=== PATIENT | male | born 1975 | race Caucasian/White ===

== ENCOUNTER 2017-05-02 14:14 | Emergency (ER) | payer OTHER ==
[~2017-05-02] VITALS: Ht 172.7 cm; Wt 74.0 kg
[2017-05-02 14:25] VITALS: BP 105/59; PULSE 78; RESP 16; TEMP 98.2; O2SAT 98
[2017-05-02] MEDS ORDERED: ERYTHROMYCIN 0.5% OPTH OINT 3.5 GM TUBO RIGHT EYE ONE (15:00)
[2017-05-02] MEDS ORDERED: ERYTOIN10 RIGHT EYE (15:07)
--- NOTE | 2017-05-02 15:09 | PD ---
HPI Chief Complaint: Foreign Body Time Seen by Provider: 14:42 Travel History International Travel<30 days: No Contact w/Intl Traveler<30days: No Traveled to known affect area: No History of Present Illness HPI This is a 41-year-old male here with a small piece of metal in his right cornea. Duration 4 days. 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 He has had a constant foreign body sensation in the right eye since the injury. Denies ocular pain or visual changes. Symptom severity is moderate. No aggravating or alleviating factors. PFSH Past Medical History Medical History: Denies Significant Hx Tetanus Vaccination: > 5 Years Influenza Vaccination: No Past Surgical History Surgical History: No Previous Surgery Social History Alcohol Use: Yes (usually daily) Tobacco Use: Yes (1 ppd) Substance Use: No Allergies-Medications (Allergen,Severity, Reaction): Coded Allergies: No Known Allergies (Verified Allergy, Unknown, 05/02/17) Reported Meds & Prescriptions Reported Meds & Active Scripts Active No Active Prescriptions or Reported Medications Review of Systems Except as stated in HPI: all other systems reviewed are Neg Physical Exam Narrative GENERAL: Alert and well-appearing male SKIN: Warm and dry. HEAD: Normocephalic. Atraumatic EYES: Pupils equal, round, reactive to light. EOMs intact. No hyphema. Small metal eric superficially embedded into the cornea of the right eye located at 10:00 over the iris. No fluorescein dye uptake. Visual acuity L: 20/20. R: 20/ 30, B: 20/20 NECK: Supple, trachea midline. Data Data Last Documented VS Vital Signs Date Time Temp Pulse Resp B/P (MAP) Pulse Ox O2 Delivery O2 Flow Rate FiO2 05/02/17 14:25 98.2 78 16 105/59 (74) 98 MDM Medical Decision Making Medical Screen Exam Complete: Yes Emergency Medical Condition: Yes Differential Diagnosis Superficial Corneal foreign body, corneal abrasion, corneal ulcer Narrative Course This is a 41-year-old male here with a small metal speck embedded in the cornea of the right eye. His vision is preserved. He has minimal pain. Small metal eric was easily removed with needle tip and cotton Q-tip. Patient tolerated procedure well. Visual acuity preserved and unchanged postprocedure. Erythromycin ointment applied. He was referred to ophthalmology for follow-up. Return precautions were discussed. Patient verbalizes understanding and agrees to plan Procedures Procedure Narrative Proparacaine hydrochloride ophthalmic drops used to anesthetize the eye. Superficial metal foreign body was easily removed from the right cornea with tip of sterile needle and cotton Q-tip. Patient tolerated procedure well. Erythromycin ophthalmic ointment applied this procedure. Diagnosis Primary Impression: Corneal foreign body Qualified Codes: T15.01XA - Foreign body in cornea, right eye, initial encounter Referrals: Lisette Ching MDmanager medicaid Additional Instructions: Antibiotic ointment as directed. Make a follow-up appoint with ophthalmology. Return to the emergency department if he developed new or worsening symptoms Scripts Erythromycin Opth Oint (Erythromycin Opth Oint) 5 Mg/Gm Oint 1 APPLIC RIGHT EYE QID for Infection for 7 Days, #1 TUBE 0 Refills Prov: Josephine Martínez 05/02/17 Disposition: DISCHARGE HOME Condition: Stable Josephine Martínez May 02, 2017 15:09
== END 2017-05-02 15:49 | disposition home or self-care (01) ==
LOC: PHEFT 14:14
DX: T15.01XA Foreign body in cornea, right eye, initial encounter (principal); F17.201 Nicotine dependence, unspecified, in remission
CPT/HCPCS: 65220

== ENCOUNTER 2017-07-14 11:03 | Emergency (ER) | payer OTHER ==
[~2017-07-14] VITALS: Ht 175.3 cm; Wt 71.5 kg
[~2017-07-14 11:03] MED LIST: ERYTOIN10 RIGHT EYE
[2017-07-14 11:09] VITALS: BP 128/61; PULSE 77; RESP 16; TEMP 97.6; O2SAT 98
[2017-07-14] MEDS ORDERED: PROPARACAINE HCL 0.5% OPHT SOLN 15 ML BTL RIGHT EYE ONE (11:45)
[2017-07-14] MEDS ORDERED: ERYTOIN10 RIGHT EYE (12:34)
--- NOTE | 2017-07-14 12:41 | PD ---
HPI Chief Complaint: Foreign Body Time Seen by Provider: 12:05 Travel History International Travel<30 days: No Contact w/Intl Traveler<30days: No Traveled to known affect area: No History of Present Illness HPI 41-year-old male presents to the emergency room for evaluation of foreign body sensation to his right eye for the past 3 days. Patient states he may have gotten metal in his eye while working on a car. Since then he has had foreign body sensation with worsening pain. He tried several times to get the piece of metal out by himself but it would not work. Mild drainage. Mild photophobia. No significant changes in visual acuity. Unknown last tetanus. PFSH Past Medical History Medical History: Denies Significant Hx Diminished Hearing: No Immunizations Current: Yes Tetanus Vaccination: Unknown Influenza Vaccination: No Past Surgical History Surgical History: No Previous Surgery Social History Alcohol Use: Yes (12 pk) Tobacco Use: Yes (1 ppd) Substance Use: No Allergies-Medications (Allergen,Severity, Reaction): Coded Allergies: No Known Allergies (Verified Allergy, Unknown, 07/14/17) Reported Meds & Prescriptions Reported Meds & Active Scripts Active No Active Prescriptions or Reported Medications Review of Systems Except as stated in HPI: all other systems reviewed are Neg Physical Exam Narrative GENERAL: Well-nourished, well-developed male in no acute distress. Afebrile. Ambulatory. SKIN: Focused skin assessment warm/dry. HEAD: Normocephalic. EYES: PERRL, EOMI without pain. Mild right-sided injection. No discharge or chemosis. No scleral icterus. There is obvious foreign body at the 4 o'clock position of the right cornea. Fluorescein staining reveals no other injury to the eye. Negative Sophia sign. Visual acuity is 20/25 in the right and 20/15 on the left. NECK: Supple, trachea midline. No JVD or lymphadenopathy. CARDIOVASCULAR: Regular rate and rhythm without murmurs, gallops, or rubs. RESPIRATORY: Breath sounds equal bilaterally. No accessory muscle use. MUSCULOSKELETAL: No cyanosis, or edema. Data Data Last Documented VS Vital Signs Date Time Temp Pulse Resp B/P (MAP) Pulse Ox O2 Delivery O2 Flow Rate FiO2 07/14/17 11:09 97.6 77 16 128/61 (83) 98 Orders Orders Proparacaine 0.5% Opth Soln (Alcaine 0.5 (07/14/17 11:45) MDM Medical Decision Making Medical Screen Exam Complete: Yes Emergency Medical Condition: Yes Medical Record Reviewed: Yes Differential Diagnosis Foreign body, corneal abrasion, corneal ulceration Narrative Course 41-year-old male presents to the emergency room for evaluation of foreign body sensation to his right eye for the past 3 days. Patient remember is getting something in his eye while working on his car. Physical exam is reassuring. There is mild injection of the right eye without significant chemosis or drainage. Visual acuity is 20/25 in the affected eye. No photophobia. There is obvious foreign body at the 4 o'clock position of the right cornea. It was removed without difficulty. There is no rust ring. Unlikely metal. Patient updated on tetanus just in case. He will be discharged with prescription for erythromycin eye ointment. Told to follow-up with primary care physician or return for worsening symptoms. He understands and agrees to plan. Diagnosis Primary Impression: Foreign body of right eye Qualified Codes: T15.91XA - Foreign body on external eye, part unspecified, right eye, initial encounter Referrals: Trouble Shooter Additional Instructions: Rest and drink plenty of fluids. Apply erythromycin as directed, for 3-5 days. Follow up with a primary care physician. Return to emergency room for worsening symptoms, as discussed. Med/Other Pt SpecificInfo: Prescription(s) given Scripts Erythromycin Opth Oint (Erythromycin Opth Oint) 5 Mg/Gm Oint 1 APPLIC RIGHT EYE QID for Infection, #1 TUBE 0 Refills Prov: Bobo Maravilla MD 07/14/17 Disposition: 01 DISCHARGE HOME Condition: Stable Mery Meyer Jul 14, 2017 12:41
[2017-07-14] MEDS ORDERED: TETANUS/DIPHTHERIA TOXOID ADULT 0.5 ML VIAL IM ONE (12:45)
== END 2017-07-14 14:03 | disposition home or self-care (01) ==
LOC: PHEFT 11:03
DX: T15.91XA Foreign body on external eye, part unspecified, right eye, initial encounter (principal); W45.8XXA Other foreign body or object entering through skin, initial encounter; F17.210 Nicotine dependence, cigarettes, uncomplicated; Z23 Encounter for immunization
CPT/HCPCS: 90471; 90714

== ENCOUNTER 2018-03-05 11:04 | Inpatient (IN) ==
[2018-03-05] MEDS ORDERED: Vancomycin Inj 1,000 MG in Sodium Chlor 0.9% Inj 250 ML IV.SIG ONE (11:37)
[2018-03-05] MEDS ORDERED: Piperacil/Tazo 3.375 GM Premix 50 ML IV.SIG ONE (11:37)
--- NOTE | 2018-03-05 11:37 | ED ---
HPI General Chief complaint: Extremity Problem,Nontraumatic Stated complaint: Left Hand Infection Time Seen by Provider: 03/05/18 11:22 Source: patient Mode of arrival: ambulatory Limitations: no limitations History of Present Illness HPI Narrative: Patient states that he got a cut to his first knuckle approximately 1 week ago, but stated that he had been taking care of it and keeping it clean. However has been taking a long time to heal. 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 2 which is continue working. This morning he was awakened by the pain at approximately 1 AM at which time he noted that his left hand was swollen and now some redness was stretching from the top of his hand all the way up to his forearm. patient is right handed. MD Complaint: Reports extremity pain and extremity swelling Onset (ago): day(s) (1) Pain Consistency: constant Location: Reports left Severity scale (1-10): 10 Quality: Reports sharp Radiation: Reports none Relieving factors: nothing Exacerbating factors: range of motion Associated symptoms: Reports denies other symptoms Related Data Previous Rx's Medication Instructions Recorded dicloxacillin 500 mg PO Q6H 8 Days #32 cap NS 03/08/18 oxycodone 5 mg PO Q6H PRN 3 Days #12 cap 03/08/18 Allergies Allergy/AdvReac Type Severity Reaction Status Date / Time No Known Allergies Allergy Verified 03/05/18 11:05 Review of Systems ROS: all other systems reviewed are negative [facility] Medical History Medical History No active medical problems (Acute) Surgical History Surgical History No history of previous surgery (Acute) Family History Family History Other No pertinent family history Social History Social History Substance History: Active Abuse Second Hand Smoke Exposure: Yes Smoking Status: Heavy tobacco smoker Tobacco Type: Cigarettes How Often Do You Have a Drink Containing Alcohol: 4 or more times a week Recent Travel in [facility] within the Last 8 Weeks: No Recent Out of Country Travel within the Last 8 Weeks: No Substance Abuse Detail Alcohol: Substance Use Type Other:: [place] Substance Use Status: Active Route Used 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 SKIN: Warm and dry. HEAD: Atraumatic. Normocephalic. EYES: Pupils equal and round. No scleral icterus. No injection or drainage. ENT: No nasal bleeding or discharge. Mucous membranes pink and moist. NECK: Trachea midline. No JVD. CARDIOVASCULAR: Regular rate and rhythm. no rubs or gallops RESPIRATORY: No accessory muscle use. Clear to auscultation. Breath sounds equal bilaterally. GASTROINTESTINAL: Abdomen soft, non-tender, nondistended. No rebound or guarding MUSCULOSKELETAL: Extremities without clubbing, cyanosis,. No obvious deformities. Left hand has diffuse edema to the dorsum with a C shaped laceration not bleeding over the second MCP. Patient has dirt on oil diesel grease all over hands. Erythema over the left dorsum of hand extending proximally towards the distal third of the radioulnar region. NEUROLOGICAL: Awake and alert. No obvious cranial nerve deficits. Motor grossly within normal limits. Five out of 5 muscle strength in the arms and legs. Normal speech. PSYCHIATRIC: Appropriate mood and affect; insight and judgment normal. Course Initial Documented Vital Signs Temperature 98 F 03/05/18 11:05 Pulse Rate 98 H 03/05/18 11:05 Respiratory Rate 16 03/05/18 11:05 Blood Pressure 136/92 H 03/05/18 11:05 Pulse Oximetry 98 03/05/18 11:05 Last Documented Vital Signs Temperature 97.7 F 03/08/18 08:00 Pulse Rate 89 03/08/18 08:00 Respiratory Rate 18 03/08/18 08:00 Blood Pressure 110/71 03/08/18 08:00 Pulse Oximetry 98 03/08/18 08:00 Critical Care Time Critical Care Time: Yes Total Critical Care Time: 30 Attestation: Aggregate critical care time was 30 minutes. Time to perform other separately billable procedures was not included in the critical care time. My time did not include minutes spent treating any other patients simultaneously or on activities that did not directly contribute to the patient's treatment. The services I provided to this patient were to treat and/or prevent clinically significant deterioration I provided critical care services requiring my management, as noted below: Chart data review, documentation time, medication orders and management, vital sign assessments/reviewing monitor data, ordering and reviewing lab tests, ordering and interpreting/reviewing x-rays and diagnostic studies, care of the patient and discussion of the patient with the admitting physicians. Medical Decision Making MDM Narrative Medical decision making narrative: CBC shows leukocytosis of 14,000 with a left shift of 83% neutrophilia no evidence of anemia or abnormal platelet count. Elect lites are within normal limits. Normal kidney liver functions Lactic acid 1.5 which is not elevated Left hand x-ray read as soft tissue swelling no retained foreign body or acute bony abnormality by radiologist Chest x-ray read by radiologist as negative examination patient given vanco and zosyn empirically and advised of admission once labs resulted. Discussed at length with Dr. ambrocio hand surgeon Call to [facility] for admission At 12:50 PM hand surgeon at bedside who advised of washout plan in or...as soon as or space available Medical Screen Exam Complete: Yes Emergency Medical Condition: Yes Lab Data Lab results reviewed: Yes I reviewed the patient's lab results. Result diagrams: 03/06/18 04:55 03/06/18 04:55 Lab Results 03/05/18 03/05/18 03/05/18 Range/Units 11:20 11:20 11:20 CBC w Diff Auto diff final WBC 14.1 H (4.0-11.0) th/mm3 RBC 4.69 (4.50-5.90) mil/mm3 Hgb 14.3 (13.0-17.0) gm/dL Hct 42.5 (39.0-51.0) % MCV 90.7 (80.0-100.0) fL MCH 30.5 (27.0-34.0) pg MCHC 33.6 (32.0-36.0) % RDW 12.4 (11.6-17.2) % Plt Count 330 (150-450) th/mm3 MPV 9.3 (7.0-11.0) fL Neut % (Auto) 83.1 H (16.0-70.0) % Lymph % (Auto) 7.5 L (9.0-44.0) % Traill % (Auto) 7.3 (0.0-8.0) % Eos % (Auto) 1.1 (0.0-4.0) % Baso % (Auto) 1.0 (0.0-2.0) % Neut # (Auto) 11.7 H (1.8-7.7) th/mm3 Lymph # (Auto) 1.1 (1.0-4.8) th/mm3 Traill # (Auto) 1.0 H (0.0-0.9) th/mm3 Eos # (Auto) 0.2 (0.0-0.4) th/mm3 Baso # (Auto) 0.1 (0.0-0.2) th/mm3 WBC Differential . Differential Comment . Sodium 139 (136-145) meq/L Potassium 3.8 (3.5-5.1) meq/L Chloride 106 (98-107) meq/L Carbon Dioxide 24.3 (21.0-32.0) meq/L Anion Gap 9 (5-15) meq/L BUN 22 H (7-18) mg/dL Creatinine 0.93 (0.60-1.30) mg/dL Estimated GFR Greater than 89 (>89) mL/min POC Glucose (68-110) mg/dl Random Glucose 103 (74-106) mg/dL Lactic Acid 1.5 (0.4-2.0) mmol/L Calcium 8.7 (8.5-10.1) mg/dL Total Bilirubin 0.5 (0.2-1.0) mg/dL AST 19 (15-37) U/L ALT 28 (12-78) U/L Alkaline Phosphatase 78 (45-117) U/L Total Protein 7.3 (6.4-8.2) g/dL Albumin 3.6 (3.4-5.0) g/dL Vancomycin Trough (5.0-10.0) mcg/mL 03/05/18 03/06/18 03/06/18 Range/Units 11:49 04:55 04:55 CBC w Diff Auto diff final WBC 10.1 (4.0-11.0) th/mm3 RBC 4.05 L (4.50-5.90) mil/mm3 Hgb 12.6 L (13.0-17.0) gm/dL Hct 37.5 L (39.0-51.0) % MCV 92.8 (80.0-100.0) fL MCH 31.0 (27.0-34.0) pg MCHC 33.4 (32.0-36.0) % RDW 13.1 (11.6-17.2) % Plt Count 291 (150-450) th/mm3 MPV 9.5 (7.0-11.0) fL Neut % (Auto) 75.5 H (16.0-70.0) % Lymph % (Auto) 12.0 (9.0-44.0) % Traill % (Auto) 9.0 H (0.0-8.0) % Eos % (Auto) 2.8 (0.0-4.0) % Baso % (Auto) 0.7 (0.0-2.0) % Neut # (Auto) 7.6 (1.8-7.7) th/mm3 Lymph # (Auto) 1.2 (1.0-4.8) th/mm3 Traill # (Auto) 0.9 (0.0-0.9) th/mm3 Eos # (Auto) 0.3 (0.0-0.4) th/mm3 Baso # (Auto) 0.1 (0.0-0.2) th/mm3 WBC Differential . Differential Comment . Sodium 139 (136-145) meq/L Potassium 3.6 (3.5-5.1) meq/L Chloride 106 (98-107) meq/L Carbon Dioxide 26.4 (21.0-32.0) meq/L Anion Gap 7 (5-15) meq/L BUN 12 (7-18) mg/dL Creatinine 0.70 (0.60-1.30) mg/dL Estimated GFR Greater than 89 (>89) mL/min POC Glucose 114 H (68-110) mg/dl Random Glucose 105 (74-106) mg/dL Lactic Acid (0.4-2.0) mmol/L Calcium 8.0 L (8.5-10.1) mg/dL Total Bilirubin (0.2-1.0) mg/dL AST (15-37) U/L ALT (12-78) U/L Alkaline Phosphatase (45-117) U/L Total Protein (6.4-8.2) g/dL Albumin (3.4-5.0) g/dL Vancomycin Trough (5.0-10.0) mcg/mL 03/06/18 Range/Units 20:50 CBC w Diff WBC (4.0-11.0) th/mm3 RBC (4.50-5.90) mil/mm3 Hgb (13.0-17.0) gm/dL Hct (39.0-51.0) % MCV (80.0-100.0) fL MCH (27.0-34.0) pg MCHC (32.0-36.0) % RDW (11.6-17.2) % Plt Count (150-450) th/mm3 MPV (7.0-11.0) fL Neut % (Auto) (16.0-70.0) % Lymph % (Auto) (9.0-44.0) % Traill % (Auto) (0.0-8.0) % Eos % (Auto) (0.0-4.0) % Baso % (Auto) (0.0-2.0) % Neut # (Auto) (1.8-7.7) th/mm3 Lymph # (Auto) (1.0-4.8) th/mm3 Traill # (Auto) (0.0-0.9) th/mm3 Eos # (Auto) (0.0-0.4) th/mm3 Baso # (Auto) (0.0-0.2) th/mm3 WBC Differential Differential Comment Sodium (136-145) meq/L Potassium (3.5-5.1) meq/L Chloride (98-107) meq/L Carbon Dioxide (21.0-32.0) meq/L Anion Gap (5-15) meq/L BUN (7-18) mg/dL Creatinine (0.60-1.30) mg/dL Estimated GFR (>89) mL/min POC Glucose (68-110) mg/dl Random Glucose (74-106) mg/dL Lactic Acid (0.4-2.0) mmol/L Calcium (8.5-10.1) mg/dL Total Bilirubin (0.2-1.0) mg/dL AST (15-37) U/L ALT (12-78) U/L Alkaline Phosphatase (45-117) U/L Total Protein (6.4-8.2) g/dL Albumin (3.4-5.0) g/dL Vancomycin Trough 10.6 H (5.0-10.0) mcg/mL Imaging Data Attestation: I personally reviewed and interpreted this imaging study as follows : Radiologist's impression: Forearm CT 03/05/18 00:00 CONCLUSION: 1. There is diffuse soft tissue swelling extending from the dorsal aspect of the hand up along the dorsal aspect of the forearm. There is no focal, drainable abscess identified. Hand CT 03/05/18 00:00 CONCLUSION: 1. There is diffuse soft tissue swelling. No focal, drainable abscess is seen. No retained foreign body is present. Chest X-Ray 03/05/18 11:37 CONCLUSION: Negative examination. Hand X-Ray 03/05/18 11:37 CONCLUSION: Soft tissue swelling. No retained foreign body or acute bony abnormality. ECG Data EKG Prior to Arrival: No Attestation: I personally reviewed and interpreted this ECG as follows: Prior ECG tracings: not available for review Interpretation: Normal sinus rhythm, 86 bpm, normal intervals, no evidence of any acute ST elevation MA pattern Discharge Plan Discharge Disposition Patient Disposition: 30 Still Patient Discharge Condition Condition: Stable Discharge Order Discharge Orders: Discharge Order (Routine); Ordered 03/08/18 Ordered By: Ton Flores Discharge Details Anticipated Discharge Date: 03/08/18 Discharge Comment: Follow up orthopedics team outpatient 03/10. No dressing change Diagnosis: Cellulitis of dorsum of hand Physicians Team ED Provider: Dung Gomes Primary Care Provider: Primary Care Linda Herzog Attending Provider: Ton Flores Other Providers: Shirley Darnell ED Status: Left Department Discharge Information Discharge Date/Time: 03/05/18 14:37
[2018-03-05 11:55] LABS: Baso # (Auto) 0.1 th/mm3 (0.0-0.2); Eos # (Auto) 0.2 th/mm3 (0.0-0.4); Eos % (Auto) 1.1 % (0.0-4.0); Hematocrit 42.5 % (39.0-51.0); Hemoglobin 14.3 gm/dL (13.0-17.0); Lymph # (Auto) 1.1 th/mm3 (1.0-4.8); Lymph % (Auto) 7.5 % (9.0-44.0); Mean Corpuscular HGB Conc 33.6 % (32.0-36.0); Mean Corpuscular Hemoglobin 30.5 pg (27.0-34.0); Mean Corpuscular Volume 90.7 fL (80.0-100.0); Mean Platelet Volume 9.3 fL (7.0-11.0); Mono % (Auto) 7.3 % (0.0-8.0); Neut # (Auto) 11.7 th/mm3 (1.8-7.7); Neut % (Auto) 83.1 % (16.0-70.0); Platelet Count 330 th/mm3 (150-450); Red Blood Count 4.69 mil/mm3 (4.50-5.90); Red Cell Distribution Width 12.4 % (11.6-17.2); White Blood Count 14.1 th/mm3 (4.0-11.0)
[2018-03-05 12:04] LABS: Chloride 106 meq/L (98-107); Potassium 3.8 meq/L (3.5-5.1); Sodium 139 meq/L (136-145)
[2018-03-05 12:08] LABS: Albumin 3.6 g/dL (3.4-5.0); Anion Gap 9 meq/L (5-15); Blood Urea Nitrogen 22 mg/dL (7-18); Calcium 8.7 mg/dL (8.5-10.1); Carbon Dioxide 24.3 meq/L (21.0-32.0); Glucose,Random 103 mg/dL (74-106)
[2018-03-05 12:11] LABS: Alanine Aminotransferase 28 U/L (12-78); Aspartate Aminotransferase 19 U/L (15-37); Glomerular Filtration Rate Greater Than 89 mL/min (>89)
[2018-03-05 12:13] LABS: Total Protein 7.3 g/dL (6.4-8.2)
[2018-03-05 12:14] LABS: Alkaline Phosphatase 78 U/L (45-117)
--- NOTE | 2018-03-05 12:23 | XR ---
EXAM DATE: 03/05/2018 12:21 PM EST AGE/SEX: 42 years / Male INDICATIONS: Possible fever. Possible left hand infection. CLINICAL DATA: This is the patient's initial encounter. Patient reports that signs and symptoms have been present for 1 day and indicates a pain score of 0/10. MEDICAL/SURGICAL HISTORY: None. None. COMPARISON: No prior exams available for comparison. FINDINGS: A single AP view of the chest demonstrates the lungs to be symmetrically aerated without evidence of mass, infiltrate or effusion. The cardiomediastinal contours are unremarkable. Osseous structures a re intact. CONCLUSION: Negative examination. Electronically signed by: Doroteo Burgess MD 03/05/2018 12:21 PM EST
--- NOTE | 2018-03-05 12:25 | XR ---
EXAM DATE: 03/05/2018 12:22 PM EST AGE/SEX: 42 years / Male INDICATIONS: Left hand pain and swelling. Possible infection; cut on 2nd digit. CLINICAL DATA: This is the patient's initial encounter. Patient reports that signs and symptoms have been present for 3 weeks and indicates a pain score of 6/10. MEDICAL/SURGICAL HISTORY: None. None. COMPARISON: . FINDINGS: There is soft tissue swelling along the dorsal aspect of the hand. No retained foreign body is seen. The visualized bony structures are intact. CONCLUSION: Soft tissue swelling. No retained foreign body or acute bony abnormality. Electronically signed by: Doroteo Burgess MD 03/05/2018 12:24 PM EST
[2018-03-05] MEDS: Tetanus/Diphtheria Toxoid Adult Vaccine Inj 0.5 ML Vial IM ONE ×2 (13:31→13:37)
[2018-03-05] MEDS ORDERED: Acetaminophen 325 MG Tablet PO PRN (13:44)
[2018-03-05] MEDS ORDERED: Bisacodyl 10 MG Supp RECTAL PRN (13:44)
--- NOTE | 2018-03-05 13:48 | P.HPIM ---
History of Present Illness Primary Care Physician: No Primary Care Physician Patient is a 42 year old male with no significant pmhx presenting to ED for LEFT forearm pain,redness, swelling. Symptoms started day prior to presentation. 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 Patient had small cut already on LEFT knuckle and says he hit it again at work and it bled shortly and stopped. He washed up and went home and noticed it swelled "rapidly" and became sore and more painful. No pus noted. No fever subjectively but felt cold. No complaints of RIGHT hand. Patient reports that he cannot close his left hand much due to swelling and pain. Some numbness reported. In ED patient patient was given vancomycin and zosyn and blood cultures sent off. Wond cultures also sent. Labs with WBC of 14.1. Ortho hand consulted by ED and planned washout 03/05. Medicine called to admit the patient. ROS otherwise negative. Chart review from 07/23 for ED visit shows patient was already given tetanus vaccination. Diagnosis (1) Swelling of left hand: (2) Hand injury: (3) Laceration of hand with infection: Inpatient Certification Inpatient Certification: I certify that the inpatient services were ordered in accordance with Medicare regulations governing the order. This includes certification that hospital inpatient services are reasonable and necessary and in the case of services not specified as inpatient-only under 42 CFR 419.22(n), that they are appropriately provided as inpatient services in accordance to with the 2-midnight benchmark under 43 CFR 412.3(e) Estimated Total Length of Stay (Days): 2 Plans for Post Hospital Care: Home Review of Systems Review of Systems: all other systems reviewed are negative [facility] Medical History Medical History No active medical problems (Acute) Surgical History Surgical History No history of previous surgery (Acute) Social History Social History Substance History: Active Abuse Second Hand Smoke Exposure: Yes Smoking Status: Heavy tobacco smoker Tobacco Type: Cigarettes How Often Do You Have a Drink Containing Alcohol: 4 or more times a week Recent Travel in [facility] within the Last 8 Weeks: No Recent Out of Country Travel within the Last 8 Weeks: No Substance Abuse Detail Alcohol: Substance Use Type Other:: alcholo Substance Use Status: Active Route Used Substance Abuse: By Mouth Substance Frequency: daily 6-12 Reason for Use: Calm Down Immunization History Tetanus Immunization: <5 Years Tetanus Immunization Year if Known: 2016 Medications and Allergies Allergies Allergy/AdvReac Type Severity Reaction Status Date / Time No Known Allergies Allergy Verified 03/05/18 11:05 Home Medications Medication Instructions Recorded Confirmed Type No Known Home Medications 03/05/18 03/05/18 History Physical Exam Vital signs: Last Vital Signs Temp 98 F 03/05/18 11:05 Pulse 72 03/05/18 12:42 Resp 18 03/05/18 12:42 BP 125/71 03/05/18 12:42 Pulse Ox 98 03/05/18 12:42 Intake & Output 03/03/18 03/04/18 03/05/18 03/06/18 06:59 06:59 06:59 06:59 Intake Total 300 / 300 Balance 300 / 300 Weight 69.5 kg General: NAD HEENT: EOMI, PERRLA CVS: tachycardia. s1/s2 Resp: CTA GI: soft, non tender, non distended, no guarding or rebound Ext: 2+ radial bounding pulse bilaterally. capillary refill < 2 seconds. Ortho: swelling from LEFT hand until half was up forearm. TTP. + erythema. No pus noticed. Results Labs CBC & Chem 7: 03/05/18 11:20 03/05/18 11:20 Imaging Impressions Chest X-Ray 03/05/18 11:37 CONCLUSION: Negative examination. Hand X-Ray 03/05/18 11:37 CONCLUSION: Soft tissue swelling. No retained foreign body or acute bony abnormality. Caprini VTE Risk Assessment Caprini VTE Risk Assessment: No/Low Risk (score <= 1) Caprini Risk Assessment Model: Point Value = 1 Point Value = 2 Point Value = 3 Point Value = 5 Age 41-60 Minor surgery BMI > 25 kg/m2 Swollen legs Varicose veins or History of unexplained or recurrent spontaneous Oral contraceptives or hormone replacement Sepsis (< 1 month) Serious lung disease, including pneumonia (< 1 month) Abnormal pulmonary function Acute myocardial infarction Congestive heart failure (< 1 month) History of inflammatory bowel disease Medical patient at bed rest Age 61-74 Arthroscopic surgery Major open surgery (> 45 min) Laparoscopic surgery (> 45 min) Malignancy Confined to bed (> 72 hours) Immobilizing plaster cast Central venous access Age >= 75 History of VTE Family history of VTE Factor V Leiden Prothrombin [id number] Lupus anticoagulant Anticardiolipin antibodies Elevated serum homocysteine Heparin-induced thrombocytopenia Other congenital or acquired thrombophilia Stroke (< 1 month) Elective arthroplasty Hip, pelvis, or leg fracture Acute spinal cord injury (< 1 month) Prophylaxis Regimen: Total Risk Factor Score Risk Level Prophylaxis Regimen 0-1 Low Early ambulation 2 Moderate Order ONE of the following: *Sequential Compression Device (SCD) *Heparin 5000 units SQ BID 3-4 Higher Order ONE of the following medications: *Heparin 5000 units SQ TID *Enoxaparin/Lovenox 40 mg SQ daily (WT < 150 kg, CrCl > 30 mL/min) *Enoxaparin/Lovenox 30 mg SQ daily (WT < 150 kg, CrCl > 10-29 mL/min) *Enoxaparin/Lovenox 30 mg SQ BID (WT < 150 kg, CrCl > 30 mL/min) AND/OR *Sequential Compression Device (SCD) 5 or more Highest Order ONE of the following medications: *Heparin 5000 units SQ TID (Preferred with Epidurals) *Enoxaparin/Lovenox 40 mg SQ daily (WT < 150 kg, CrCl > 30 mL/min) *Enoxaparin/Lovenox 30 mg SQ daily (WT < 150 kg, CrCl > 10-29 mL/min) *Enoxaparin/Lovenox 30 mg SQ BID (WT < 150 kg, CrCl > 30 mL/min) AND *Sequential Compression Device (SCD) Assessment and Plan (1) Swelling of left hand: Code(s): M79.89 - Other specified soft tissue disorders Status: Acute (2) Hand injury: Code(s): S69.90XA - Unspecified injury of unspecified wrist, hand and finger(s), initial encounter Status: Acute (3) Laceration of hand with infection: Code(s): S61.419A - Laceration without foreign body of unspecified hand, initial encounter; L08.9 - Local infection of the skin and subcutaneous tissue, unspecified Status: Acute Plan Infectious disease: Hand infection - CT LEFT hand/dorsum given rapid swelling and progression r/o abscess collection. pustules on dorsum of hand - blood cultures obtained and pending. Tailor abx based on culture results. - wound culture - Infectious disease consultation - vancomycin + zosyn 4.5g q6hrs ( coverage of mrsa, gram neg, and anerobic bacteria) - orthopedics to do hand washout - vanc troph monitoring goal 15-20 - elevation helps to reduce edema by improving venous and lymphatic drainage. The goal of elevation is to keep the hand above the level of the heart so that dependent drainage can occur. - when ready for PO will transition: Oral antibiotic agents of choice include trimethoprim-sulfamethoxazole (TMP-SMX),doxycycline or clindamycin - patient encouraged to use gloves at work code: fc dvt ppx dispo: medicine diet: regular ( after washout)
--- NOTE | 2018-03-05 14:58 | CT ---
EXAM DATE: 03/05/2018 2:48 PM EST AGE/SEX: 42 years / Male INDICATIONS: Cut on 2nd metacarpal phalange joint on left hand. Pain and swelling left hand and dis dora forearm. Evaluate for abscess. CLINICAL DATA: This is the patient's initial encounter. Patient reports that signs and symptoms have been present for 1 week and indicates a pain score of 10/10. MEDICAL/SURGICAL HISTORY: None. None. RADIATION DOSE: 16.27 CTDI (mGy) ; Combined studies COMPARISON: . TECHNIQUE: Multiple contiguous axial images were acquired using a multi-row detector CT scanner afte r the intravenous administration of 95 ml Omnipaque 350 (iohexol) nonionic water-soluble contrast as a cumulative dose for multiple exams. Multiplanar reconstruction was performed in the sagittal and coronal planes. Using automated exposure control and adjustment of the mA and/or kV according to pa tient size, radiation dose was kept as low as reasonably achievable to obtain optimal diagnostic qual ity images. DICOM format image data is available electronically for review and comparison. FINDINGS: Problems specific findings: The examination demonstrates some moderate edematous changes and soft tis ruth swelling within the forearm. There is no focal, drainable abscess identified. No retained foreign body is present. The visualized osseous structures are intact. CONCLUSION: 1. There is diffuse soft tissue swelling extending from the dorsal aspect of the hand up along the d orsal aspect of the forearm. There is no focal, drainable abscess identified. Electronically signed by: Doroteo Burgess MD 03/05/2018 2:57 PM EST
[2018-03-05] MEDS ORDERED: Vancomycin Inj 1,250 MG in Sodium Chlor 0.9% Inj 250 ML IV.SIG SCH (15:00)
[2018-03-05] MEDS ORDERED: Vancomycin Consult Pharmacy OTHER PRN (15:00)
--- NOTE | 2018-03-05 15:01 | CT ---
EXAM DATE: 03/05/2018 2:48 PM EST AGE/SEX: 42 years / Male INDICATIONS: Cut on 2nd metacarpal phalange joint on left hand. Pain and swelling left hand and dis dora forearm. Evaluate for abscess. CLINICAL DATA: This is the patient's initial encounter. Patient reports that signs and symptoms have been present for 1 week and indicates a pain score of 10/10. MEDICAL/SURGICAL HISTORY: None. None. RADIATION DOSE: 16.27 CTDI (mGy) ; Combined studies COMPARISON: [facility]PO, CT FOREARM LEFT W CONTRAST, 03/05/2018. . TECHNIQUE: Multiple contiguous axial images were acquired using a multi-row detector CT scanner afte r the intravenous administration of 95 ml Omnipaque 350 (iohexol) nonionic water-soluble contrast as a cumulative dose for multiple exams. Multiplanar reconstruction was performed in the sagittal and coronal planes. Using automated exposure control and adjustment of the mA and/or kV according to pa tient size, radiation dose was kept as low as reasonably achievable to obtain optimal diagnostic qual ity images. DICOM format image data is available electronically for review and comparison. FINDINGS: Postcontrast imaging of the hand and forearm are provided. The examination demonstrates diffuse soft tissue swelling involving the dorsal aspect of the hand extending up the dorsal aspect of the forearm . There is no focal drainable defined abscess seen. No retained foreign body is present. The visualized osseous structures are intact. CONCLUSION: 1. There is diffuse soft tissue swelling. No focal, drainable abscess is seen. No retained foreign b shabana is present. Electronically signed by: Doroteo Burgess MD 03/05/2018 2:59 PM EST
[2018-03-05] MEDS ORDERED: Lidocaine 2% Inj 50 ML Vial ONE (15:57)
[2018-03-05] MEDS ORDERED: Neomycin/Polymyxin G.U. Irrigant 1 ML Ampul ONE (15:57)
[2018-03-05] MEDS ORDERED: Bupivacaine PF 0.5% Inj 30 ML Vial ONE (15:57)
[2018-03-05] MEDS ORDERED: Chlorhexidine Gluconate 2% 1 Pack (2 Cloths) TOPICAL ONE (17:10)
[2018-03-05] MEDS ORDERED: fentaNYL Citrate Inj 250 MCG/5 ML Ampul ONE (17:14)
[2018-03-05] MEDS ORDERED: Phenylephrine/NS 1000 MCG/10ML Syringe IV.PUSH ONE (17:25)
[2018-03-05] MEDS ORDERED: Succinylcholine Inj 100 MG/5 ML Syringe IV.PUSH ONE (17:25)
[2018-03-05] MEDS ORDERED: Sodium Chlor 0.9% Inj 500 ML IV.SIG SCH (18:00)
--- NOTE | 2018-03-05 18:20 | MB ---
cc: Kofi Hillman MD DATE: 03/05/2018 REASON FOR CONSULTATION: Left index finger infection. HISTORY OF PRESENT ILLNESS: The patient is a 42-year-old right hand dominant male, who presented with complaints of pain, swelling involving the left hand and index finger since yesterday. The patient states 3 weeks ago, he had a laceration on the dorsal aspect of the left index finger, which was healing well until yesterday when he banged his left index finger onto a Bobcat resulting in injury over the same region. The patient has noticed pain, swelling, redness, which has been worsening since then. He also complains of worse pain with range of motion of the finger. The patient also complains of mild drainage from the region. He states he is unable to move the left index finger. He denies any fever. He denies any tingling or numbness. PAST MEDICAL AND SURGICAL HISTORY: Noted nonsignificant. PHYSICAL EXAMINATION: EXTREMITIES: Examination of left hand reveals swelling over the dorsal aspect of the hand and index finger. An open wound noted over the index finger metacarpophalangeal joint in a transverse fashion measuring about 0.5 cm. Surrounding redness is noted. Mild serous drainage noted from the region. Exquisite tenderness noted over the dorsal aspect of the index finger MP joint. Tenderness also noted along the extensor tendons over the dorsal aspect of the hand. Range of motion of index finger is limited and painful. He has intact sensation distally. He has intact distal capillary refill. LABORATORY DATA: His lab work was reviewed. He has a white count of 14.1. X-rays shows soft tissue swelling with no evidence of fracture or retained foreign body. ASSESSMENT: A 42-year-old male with infected laceration over the dorsal aspect of the index finger MP joint, left index finger, questionable for MP joint involvement. PLAN: Will be to take the patient emergently for incision and drainage, possible arthrotomy metacarpophalangeal joint, left index finger. The patient has been explained the risks and benefits of the procedure. He has been consented for the same. He will be admitted for IV antibiotics. Kofi Hillman MD SE/em , 05:15 PM , 05:22 PM
--- NOTE | 2018-03-05 18:32 | P.OP ---
- Preoperative Diagnosis (1) Laceration of hand with infection Comment: left index finger MP joint - Postoperative Diagnosis (1) Laceration of hand with infection Comment: left index finger Date of procedure: 03/05/18 Procedure: incision/drainage and excisional debridement left index finger MP joint region Anesthesia: GETA Surgeon: Kofi Hillman MD Estimated blood loss (mL): 5 Tourniquet time (min): 25 Pathology: other (swab for gram stain and c/s) Operation and Findings: purulence over the MP joint region intact extensor tendon no involvement of the joint intra operatively
[2018-03-05] MEDS ORDERED: LORazepam 1 MG Tablet PO PRN (18:43)
[2018-03-05] MEDS ORDERED: Haloperidol Inj 5 MG/ML Ampul IV.PUSH PRN (18:43)
--- NOTE | 2018-03-05 19:25 | P.CONID ---
History of Present Illness Service: ID Consult date: 03/05/18 Requesting Physician: Ton Flores Reason for Consult: L hand infection Primary Care Provider: No Primary Care Physician History of Present Illness: Pt was seen, examines in PO ER rm# 12 He injured his R hand with a saw about 2 weeks ago Oin the last 1-2 days noted worsening swelling, pain afebrile, but elevated WBC (14K) Review of Systems All other systems reviewed negative except as stated in HPI PMFSH - History History Provided By: Patient - Medical History Medical History: Medical History (Last Reviewed 03/05/18 @ 19:18 by Shirley Darnell MD) No active medical problems - Surgical History Surgical History: Surgical History (Last Reviewed 03/05/18 @ 19:18 by Shirley Darnell MD) No history of previous surgery - Family History Family History: Family History (Last Updated 03/05/18 @ 19:18 by Shirley Darnell MD) Other No pertinent family history - Social History I have reviewed the patient's Social History: Yes - Tobacco History Second Hand Smoke Exposure: Yes Tobacco Use In Past 30 Days: Yes Smoking Status: Heavy tobacco smoker Tobacco Type: Cigarettes - Alcohol History How Often Do You Have a Drink Containing Alcohol: 4 or more times a week - Substance Use History Substance History: Active Abuse - Substance Use Type Alcohol Type: alcholo Status: Active Route Used: By Mouth Frequency: daily 6-12 Reason for Use: Calm Down - Travel History Recent Travel in the [place] Within the Last 8 Weeks: No Recent Travel Out of the Country Within the Last 8 Weeks: No - Immunization History Tetanus Immunization: <5 Years Tetanus Immunization Year if Known: 2016 Hx Influenza Vaccine This Season: No Medications and Allergies Active Medications: Active Medications Acetaminophen (Tylenol) 650 mg PO Q4H PRN PRN Reason: Temp > 100.4 Al Hydroxide/Mg Hydroxide (Milk Of Magnesia Liq) 30 ml PO Q12H PRN PRN Reason: Mild Constipation Bisacodyl (Dulcolax Supp) 10 mg RECTAL DAILY PRN PRN Reason: SEVERE CONSITIPATION Flumazenil (Romazecon Inj) 0.2 mg IV.PUSH Q1M PRN PRN Reason: OVERSEDATION Haloperidol Lactate (Haldol Inj) 1 mg IV.PUSH Q15M PRN PRN Reason: for severe agitation Lactated Ringer's (Lr 1000 Ml Inj) 1,000 mls @ 100 mls/hr IV.CONT .Q10H MARTHA Last Admin: 03/05/18 14:26 Dose: 100 mls/hr Piperacillin/Tazobactam/Dextrose (Zosyn 4.5 Gm Premix) 4.5 gm in 100 mls @ 200 mls/hr IV.SIG Q6H MARTHA Vancomycin HCl 850 mg/ Sodium (Chloride) 258.5 mls @ 250 mls/hr IV.SIG Q8H MARTHA Sodium Chloride (Ns Inj) 500 mls @ 30 mls/hr IV.SIG .Q10H MARTHA Lactated Ringer's (Lr 1000 Ml Inj) 1,000 mls @ 30 mls/hr IV.SIG .Q24H MARTHA Stop: 03/06/18 17:14 Lorazepam (Ativan) 1 mg PO Q4H PRN PRN Reason: for CIWA 8-10 Lorazepam (Ativan Inj) 2 mg IV.PUSH Q2H PRN PRN Reason: for CIWA 11-14 Lorazepam (Ativan Inj) 2 mg IV.PUSH Q1H PRN PRN Reason: for CIWA 15-20 Lorazepam (Ativan Inj) 2 mg IV.PUSH Q15M PRN PRN Reason: for CIWA > 20 Lorazepam (Ativan Inj) 1 mg IV.PUSH Q4H PRN PRN Reason: for CIWA 8-10 Lorazepam (Ativan) 2 mg PO Q2H PRN PRN Reason: for CIWA 11-14 Miscellaneous Information ([facility] Ordered Lab Info) 0 each OTHER ONCE ONE Stop: 03/06/18 20:46 Ondansetron HCl (Zofran Inj) 4 mg IV.PUSH Q6H PRN PRN Reason: NAUSEA OR VOMITING Pharmacy Profile Note (Vancomycin Consult Pharmacy) 1 each OTHER UNSCH PRN PRN Reason: Pharmacy to dose Senna/Docusate Sodium (Paula-Colace) 1 tab PO BID MARTHA Sennosides (Senokot) 17.2 mg PO Q12H PRN PRN Reason: Moderate Constipation Sodium Chloride (Ns Flush) 2 ml IV.FLUSH BID MARTHA Sodium Chloride (Ns Flush) 2 ml IV.FLUSH PRN PRN PRN Reason: FLUSH AFTER USING IV ACCESS Allergies Allergy/AdvReac Type Severity Reaction Status Date / Time No Known Allergies Allergy Verified 03/05/18 11:05 Home Medications Medication Instructions Recorded Confirmed Type No Known Home Medications 03/05/18 03/05/18 History Exam Vital signs: Vital Signs 03/05/18 11:05 03/05/18 11:59 03/05/18 12:42 Temperature 98 F Pulse Rate 98 H 82 72 Respiratory Rate 16 18 Blood Pressure 136/92 H 125/71 Pulse Oximetry 98 96 98 03/05/18 14:30 03/05/18 16:10 03/05/18 18:25 Temperature 97.8 F 98.1 F Pulse Rate 83 76 94 H Respiratory Rate 18 16 16 Blood Pressure 117/81 123/87 111/60 Pulse Oximetry 95 100 94 L 03/05/18 18:30 03/05/18 18:45 Temperature Pulse Rate 87 87 Respiratory Rate 16 16 Blood Pressure 102/65 109/73 Pulse Oximetry 97 98 Intake & Output 03/05/18 03/05/18 03/06/18 06:59 18:59 06:59 Intake Total 300 / 300 Balance 300 / 300 Weight 69.5 kg Intake: IV 300 / 300 Zosyn 3.375 GM Premix 50 ML @ 50 / 50 100 mls/hr IV.SIG ONCE ONE Rx#: [id number] Vancomycin Inj 1,000 MG In NS 250 / 250 Inj 250 ML @ 250 mls/hr IV.SIG ONCE ONE Rx#:[id number] Other: # Voids 1 Date of Last Bowel Movement 03/03/18 - Constitutional no acute distress, average body habitus, disheveled - Routine HEENT Exam Head: Present: normocephalic, atraumatic Eye: Present: EOMI, PERRL ENT: Present: mucous membranes moist, oropharynx clear, dentition normal - Routine Neck Exam Present: supple, full ROM - Routine Respiratory Exam Present: CTA bilaterally. Absent: accessory muscle use, decreased breath sounds - Routine Cardiovascular Exam Present: RRR, S1, S2. Absent: murmur, gallop, rubs - Routine Abdominal Exam Present: soft, normoactive bowel sounds. Absent: tenderness, distended, organomegaly, mass - Routine Extremities Exam Absent: cyanosis, clubbing, edema Comments: STATUS LOCALIS: L hand with small open wound noted over the index finger metacarpophalangeal joint with surrounding redness, swelling extending to the wrist + Exquisite tenderness noted Range of motion of index finger is limited and painful. - Routine Skin Exam Present: intact, warm. Absent: rash - Routine Neurological Exam Present: alert, oriented X3, CN II-XII intact. Absent: sensory deficit, motor deficit - Routine Psychiatric Exam Present: normal affect, cooperative Results - Labs CBC & Chem 7: 03/05/18 11:20 03/05/18 11:20 Labs: Laboratory Results - last 24 hr 03/05/18 03/05/18 03/05/18 11:20 11:20 11:20 CBC w Diff Auto diff final WBC 14.1 H RBC 4.69 Hgb 14.3 Hct 42.5 MCV 90.7 MCH 30.5 MCHC 33.6 RDW 12.4 Plt Count 330 MPV 9.3 Neut % (Auto) 83.1 H Lymph % (Auto) 7.5 L Ransom % (Auto) 7.3 Eos % (Auto) 1.1 Baso % (Auto) 1.0 Neut # (Auto) 11.7 H Lymph # (Auto) 1.1 Ransom # (Auto) 1.0 H Eos # (Auto) 0.2 Baso # (Auto) 0.1 WBC Differential . Differential Comment . Sodium 139 Potassium 3.8 Chloride 106 Carbon Dioxide 24.3 Anion Gap 9 BUN 22 H Creatinine 0.93 Estimated GFR Greater than 89 POC Glucose Random Glucose 103 Lactic Acid 1.5 Calcium 8.7 Total Bilirubin 0.5 AST 19 ALT 28 Alkaline Phosphatase 78 Total Protein 7.3 Albumin 3.6 03/05/18 11:49 CBC w Diff WBC RBC Hgb Hct MCV MCH MCHC RDW Plt Count MPV Neut % (Auto) Lymph % (Auto) Ransom % (Auto) Eos % (Auto) Baso % (Auto) Neut # (Auto) Lymph # (Auto) Ransom # (Auto) Eos # (Auto) Baso # (Auto) WBC Differential Differential Comment Sodium Potassium Chloride Carbon Dioxide Anion Gap BUN Creatinine Estimated GFR POC Glucose 114 H Random Glucose Lactic Acid Calcium Total Bilirubin AST ALT Alkaline Phosphatase Total Protein Albumin - Imaging Impressions Forearm CT 03/05/18 00:00 CONCLUSION: 1. There is diffuse soft tissue swelling extending from the dorsal aspect of the hand up along the dorsal aspect of the forearm. There is no focal, drainable abscess identified. Hand CT 03/05/18 00:00 CONCLUSION: 1. There is diffuse soft tissue swelling. No focal, drainable abscess is seen. No retained foreign body is present. Chest X-Ray 03/05/18 11:37 CONCLUSION: Negative examination. Hand X-Ray 03/05/18 11:37 CONCLUSION: Soft tissue swelling. No retained foreign body or acute bony abnormality. Assessment and Plan - Plan L hand celllulits, phegmone severe infection consider joint , tendeon involmement cont curent abx agree with OR plan dw Dr Manuel Valderrama
--- NOTE | 2018-03-05 19:48 | MP ---
cc: Kofi Hillman MD DATE OF OPERATION: 03/05/2018 PREOPERATIVE DIAGNOSIS: Laceration with infection, left index finger metacarpophalangeal joint region. POSTOPERATIVE DIAGNOSIS: Laceration with infection of metacarpophalangeal joint region, left index finger. PROCEDURE PERFORMED: Incision, drainage and excisional debridement, left index finger metacarpophalangeal joint region. SURGEON: Kofi Hillman MD ANESTHESIA: General. ESTIMATED BLOOD LOSS: 5 mL. TOURNIQUET TIME: 25 minutes at 250 mmHg. SPECIMEN SENT: Culture and sensitivity. DISPOSITION: PACU stable. INDICATION FOR PROCEDURE: The patient is a 42-year-old male who presented with complaints of worsening pain and swelling involving the left index finger for the past 1 day. The patient states 3 weeks ago he had a laceration over the dorsal aspect of the left index finger and was doing well until he bumped to the left index finger on a Bobcat yesterday, resulting in worsening of symptoms. He also complained of worsening pain with range of motion and inability to make a fist. Denied any fever. On examination, he had a laceration with a scab over the dorsal aspect of the index finger MP joint in a transverse fashion measuring about 1 cm. Surrounding swelling, erythema and tenderness were noted. Range of motion of the index finger was limited and painful. He had a white count of 14 and x-rays were negative for fracture or foreign body. The patient was consented for an incision and drainage and possible arthrotomy, left index finger MP joint. The patient was explained the risks and benefits of the procedure. PROCEDURE IN DETAIL: The patient was brought to the operating room. Under general anesthesia, the left upper extremity was sterilely prepped and draped. The scab was opened and there was evidence of purulence in the region. The limb was elevated and the tourniquet was inflated to 250 mmHg. Incision site was then marked extending from the transverse laceration in both proximal and distal directions. Skin incision was then made over the proposed incision site. Soft tissue dissection was carried out. There was evidence of purulence over the dorsal aspect of the index finger MP joint. Extensive granulation tissue and inflammatory tissue were noted in the region. The extensor tendon was covered with extensive inflammatory granulation tissue, which was debrided using sharp and blunt dissection. There was no evidence of a rent in the extensor tendon. The tendon was intact. There was no evidence of involvement of the MP joint intraoperatively with no rent in the capsule. Hence, a decision was made not to open the MP joint as it was not involved intraoperatively. After excisional debridement, a thorough wash was given using hydrogen peroxide and then normal saline mixed with irrigant. About a liter of solution was used. Tourniquet was deflated at 25 minutes. He had good distal circulation with release of the tourniquet. Bleeding points were cauterized with bipolar cautery. The edges of the laceration were freshened. Packing of the wound was carried out. The wound was partially closed with 5-0 nylon in a horizontal mattress interrupted fashion. He had good distal circulation at the end of the procedure. About 5 mL of local anesthesia was injected as a field block. A bulky hand dressing was applied. This was held in place by Sof-Rol and bias hand wrap. The patient was awakened and sent to the recovery room in stable condition. The plan will be to follow up cultures and continue with IV antibiotics. Kofi Hillman MD SE/rufino , 06:37 PM , 06:46 PM
[2018-03-05] MEDS: Piperacil/Tazo 4.5 GM Premix 4.5 GM/100 ML BAG IV.SIG SCH (21:13)
[2018-03-05] MEDS: Vancomycin Inj 850 MG in Sodium Chlor 0.9% Inj 250 ML IV.SIG SCH (22:00)
[2018-03-05] MEDS: Senna/Docusate Sodium 8.6/50 MG Tablet PO SCH (22:02)
[2018-03-06] MEDS: Piperacil/Tazo 4.5 GM Premix 4.5 GM/100 ML BAG IV.SIG SCH ×6 (00:21→23:09)
[2018-03-06] MEDS: Vancomycin Inj 850 MG in Sodium Chlor 0.9% Inj 250 ML IV.SIG SCH ×3 (05:08→21:05)
[2018-03-06 06:11] LABS: Baso # (Auto) 0.1 th/mm3 (0.0-0.2); Baso % (Auto) 0.7 % (0.0-2.0); Eos # (Auto) 0.3 th/mm3 (0.0-0.4); Eos % (Auto) 2.8 % (0.0-4.0); Hematocrit 37.5 % (39.0-51.0); Hemoglobin 12.6 gm/dL (13.0-17.0); Lymph # (Auto) 1.2 th/mm3 (1.0-4.8); Mean Corpuscular HGB Conc 33.4 % (32.0-36.0); Mean Corpuscular Volume 92.8 fL (80.0-100.0); Mean Platelet Volume 9.5 fL (7.0-11.0); Mono # (Auto) 0.9 th/mm3 (0.0-0.9); Neut # (Auto) 7.6 th/mm3 (1.8-7.7); Neut % (Auto) 75.5 % (16.0-70.0); Platelet Count 291 th/mm3 (150-450); Red Blood Count 4.05 mil/mm3 (4.50-5.90); Red Cell Distribution Width 13.1 % (11.6-17.2); White Blood Count 10.1 th/mm3 (4.0-11.0)
[2018-03-06 06:16] LABS: Chloride 106 meq/L (98-107); Potassium 3.6 meq/L (3.5-5.1); Sodium 139 meq/L (136-145)
[2018-03-06 06:23] LABS: Anion Gap 7 meq/L (5-15); Blood Urea Nitrogen 12 mg/dL (7-18); Carbon Dioxide 26.4 meq/L (21.0-32.0); Glucose,Random 105 mg/dL (74-106)
[2018-03-06 06:26] LABS: Glomerular Filtration Rate Greater Than 89 mL/min (>89)
--- NOTE | 2018-03-06 10:08 | P.PNIM ---
Subjective Interval history: patient seen and evaluated this morning at bedside. No subjective fever chills endorsed. Patient status post incision and drainage 24 hours ago in operating room with placement of bandaging around left hand and wrist. Infectious disease consultation appreciated and patient will continue current antibiotic regimen. Awaiting final wound culture results to tailor antibiotics at this time. Patient is doing well with current pain management regimen at this time and says that he is comfortable. Preliminary wound culture results for staph aureus. Physical Exam Vital signs: Last Vital Signs Temp 97.6 F 03/06/18 08:00 Pulse 68 03/06/18 08:00 Resp 21 03/06/18 08:00 BP 118/82 03/06/18 08:00 Pulse Ox 99 03/06/18 08:00 Intake & Output 03/04/18 03/05/18 03/06/18 03/07/18 06:59 06:59 06:59 06:59 Intake Total 2140 / 2140 718.5 / 718.5 Output Total 300 / 300 Balance 2140 / 2140 418.5 / 418.5 Weight 71.5 kg General: No acute distress, conversational HEENT: EOMI, slight droop of left eyelid chronic. Respiratory: Clear to auscultation Cardiovascular: S1/S2 Gastrointestinal: Soft, nontender, nondistended, no guarding or rebound appreciated. Muscular skeletal/Orto: Extensive bandaging over left wrist and hand. Mild swelling of left forearm. ; No calf tenderness or edema Results Labs CBC & Chem 7: 03/06/18 04:55 03/06/18 04:55 Imaging Imaging: Impressions Forearm CT 03/05/18 00:00 CONCLUSION: 1. There is diffuse soft tissue swelling extending from the dorsal aspect of the hand up along the dorsal aspect of the forearm. There is no focal, drainable abscess identified. Hand CT 03/05/18 00:00 CONCLUSION: 1. There is diffuse soft tissue swelling. No focal, drainable abscess is seen. No retained foreign body is present. Chest X-Ray 03/05/18 11:37 CONCLUSION: Negative examination. Hand X-Ray 03/05/18 11:37 CONCLUSION: Soft tissue swelling. No retained foreign body or acute bony abnormality. Assessment and Plan (1) Swelling of left hand: Code(s): M79.89 - Other specified soft tissue disorders Status: Acute (2) Hand injury: Code(s): S69.90XA - Unspecified injury of unspecified wrist, hand and finger(s), initial encounter Status: Acute (3) Laceration of hand with infection: Code(s): S61.419A - Laceration without foreign body of unspecified hand, initial encounter; L08.9 - Local infection of the skin and subcutaneous tissue, unspecified Status: Acute Plan Orthopedist: Left hand laceration with wound infection - CT LEFT hand unremarkable for fluid collection or abscess. Presumptive wound culture results MRSA. Status post incision and drainage in operating room 03/05. White blood cell count improving. - blood cultures no growth to date. Tailor abx based on culture results. - wound culture pending - Infectious disease consultation appreciated - vancomycin + zosyn 4.5g q6hrs ( coverage of mrsa, gram neg, and anerobic bacteria) - elevation helps to reduce edema by improving venous and lymphatic drainage. The goal of elevation is to keep the hand above the level of the heart so that dependent drainage can occur. - when ready for PO will transition: Oral antibiotic agents of choice include trimethoprim-sulfamethoxazole (TMP-SMX),doxycycline or clindamycin - patient encouraged to use gloves at work code: fc dvt ppx dispo: medicine diet: regular Progress Note: Quality VTE Deep Vein Thrombosis/Pulmonary Embolism Present on Admission: No
[2018-03-06] MEDS: Senna/Docusate Sodium 8.6/50 MG Tablet PO SCH ×2 (10:30→21:05)
--- NOTE | 2018-03-06 12:44 | ECG ---
Date Performed: 03/05/2018 Time Performed: 11:45:44 PTAGE: 42 years EKG: Sinus rhythm NORMAL ECG NO PREVIOUS TRACING DOCTOR: Andres Hernandez Interpretating Date/Time 03/06/2018 12:41:33
--- NOTE | 2018-03-06 16:53 | P.PN ---
Subjective Interval history: complains of pain no fever or numbness Physical Exam Vital signs: Vital Signs 03/05/18 18:25 03/05/18 18:30 03/05/18 18:45 Temperature 98.1 F Pulse Rate 94 H 87 87 Respiratory Rate 16 16 16 Blood Pressure 111/60 102/65 109/73 Pulse Oximetry 94 L 97 98 03/05/18 19:00 03/05/18 20:00 03/06/18 00:00 Temperature 98.1 F 97.7 F 96.6 F L Pulse Rate 75 65 67 Respiratory Rate 16 18 18 Blood Pressure 119/82 111/73 119/71 Pulse Oximetry 96 97 97 03/06/18 08:00 03/06/18 11:24 03/06/18 12:00 Temperature 97.6 F 98.1 F 98.7 F Pulse Rate 68 72 78 Respiratory Rate 21 16 20 Blood Pressure 118/82 122/82 122/78 Pulse Oximetry 99 98 Intake & Output 03/05/18 03/06/18 03/06/18 18:59 06:59 18:59 Intake Total 300 / 300 1840 / 1840 2077.0 / 2077.0 Output Total 300 / 300 Balance 300 / 300 1840 / 1840 1777.0 / 1777.0 Weight 69.5 kg 71.5 kg Intake: IV 300 / 300 1600 / 1600 1717.0 / 1717.0 LR 1000 mL Inj 1,000 ML @ 100 1000 / 1000 1000 / 1000 mls/hr IV.CONT .Q10H MARTHA Rx#: [id number] Zosyn 3.375 GM Premix 50 ML @ 50 / 50 100 mls/hr IV.SIG ONCE ONE Rx#: [id number] Zosyn 4.5 GM Premix 4.5 gm In 100 / 100 200 / 200 100 ml @ 200 mls/hr IV.SIG Q6H MARTHA Rx#:[id number] Vancomycin Inj 1,000 MG In NS 250 / 250 Inj 250 ML @ 250 mls/hr IV.SIG ONCE ONE Rx#:[id number] Vancomycin Inj 850 MG In NS Inj 500 / 500 517.0 / 517.0 250 ML @ 250 mls/hr IV.SIG Q8H MARTHA Rx#:[id number] Oral 240 / 240 360 / 360 Output: Urine 300 / 300 Other: # Voids 1 1 Date of Last Bowel Movement 03/03/18 03/03/18 Narrative: exam left hand: swelling noted over the dorsal aspect of the hand packing in place range of motion index finger is limited and painful intact sensation and circulation distally gram stain and cultures: staph, sensitivity pending Results - Labs CBC & Chem 7: 03/06/18 04:55 03/06/18 04:55 Laboratory Results - last 24 hr 03/06/18 03/06/18 04:55 04:55 CBC w Diff Auto diff final WBC 10.1 RBC 4.05 L Hgb 12.6 L Hct 37.5 L MCV 92.8 MCH 31.0 MCHC 33.4 RDW 13.1 Plt Count 291 MPV 9.5 Neut % (Auto) 75.5 H Lymph % (Auto) 12.0 Bryan % (Auto) 9.0 H Eos % (Auto) 2.8 Baso % (Auto) 0.7 Neut # (Auto) 7.6 Lymph # (Auto) 1.2 Bryan # (Auto) 0.9 Eos # (Auto) 0.3 Baso # (Auto) 0.1 WBC Differential . Differential Comment . Sodium 139 Potassium 3.6 Chloride 106 Carbon Dioxide 26.4 Anion Gap 7 BUN 12 Creatinine 0.70 Estimated GFR Greater than 89 Random Glucose 105 Calcium 8.0 L Microbiology 03/05/18 17:45 Wound - Finger Gram Stain - Final 03/05/18 17:45 Wound - Finger Wound Culture - Preliminary Staphylococcus aureus 03/05/18 17:45 Wound - Finger Fungal Smear - Final No fungal elements seen 03/05/18 17:45 Wound - Finger Acid Fast Bacilli Smear - Final No acid fast bacilli seen 03/05/18 11:45 Abscess - Hand Gram Stain - Final 03/05/18 11:45 Abscess - Hand Wound Culture - Preliminary Staphylococcus aureus 03/05/18 11:20 Blood - Peripheral Aerobic Blood Culture - Preliminary No growth in 1 day 03/05/18 11:20 Blood - Peripheral Anaerobic Blood Culture - Preliminary No growth in 1 day 03/05/18 11:25 Blood - Peripheral Aerobic Blood Culture - Preliminary No growth in 1 day 03/05/18 11:25 Blood - Peripheral Anaerobic Blood Culture - Preliminary No growth in 1 day Assessment and Plan - Assessment (1) Laceration of hand with infection Code(s): S61.419A - Laceration without foreign body of unspecified hand, initial encounter; L08.9 - Local infection of the skin and subcutaneous tissue, unspecified Status: Acute Plan: packing pulled out couple of cms dry dressing applied continue with limb elevation range of motion exercises antibiotics based on ID recommendations Dr. Williamson will be covering over the weekend, will remove packing tomorrow and if progressing well plan for discharge on friday or friday based on culture results.
--- NOTE | 2018-03-06 18:57 | P.PNID ---
Subjective Remarks: sp I+D report noted; no tendons or joint involvement afebrile Antibiotics: vanc zosyn Allergies/Adverse Reactions: Allergies No Known Allergies Allergy (Verified 03/05/18 11:05) Objective Vital Signs 03/05/18 19:00 03/05/18 20:00 03/06/18 00:00 Temperature 98.1 F 97.7 F 96.6 F L Pulse Rate 75 65 67 Respiratory Rate 16 18 18 Blood Pressure 119/82 111/73 119/71 Pulse Oximetry 96 97 97 03/06/18 08:00 03/06/18 11:24 03/06/18 12:00 Temperature 97.6 F 98.1 F 98.7 F Pulse Rate 68 72 78 Respiratory Rate 21 16 20 Blood Pressure 118/82 122/82 122/78 Pulse Oximetry 99 98 Intake & Output 03/05/18 03/06/18 03/06/18 18:59 06:59 18:59 Intake Total 300 / 300 1840 / 1840 2437.0 / 2437.0 Output Total 700 / 700 Balance 300 / 300 1840 / 1840 1737.0 / 1737.0 Weight 69.5 kg 71.5 kg Intake: IV 300 / 300 1600 / 1600 1717.0 / 1717.0 LR 1000 mL Inj 1,000 ML @ 100 1000 / 1000 1000 / 1000 mls/hr IV.CONT .Q10H MARTHA Rx#: [id number] Zosyn 3.375 GM Premix 50 ML @ 50 / 50 100 mls/hr IV.SIG ONCE ONE Rx#: [id number] Zosyn 4.5 GM Premix 4.5 gm In 100 / 100 200 / 200 100 ml @ 200 mls/hr IV.SIG Q6H MARTHA Rx#:[id number] Vancomycin Inj 1,000 MG In NS 250 / 250 Inj 250 ML @ 250 mls/hr IV.SIG ONCE ONE Rx#:[id number] Vancomycin Inj 850 MG In NS Inj 500 / 500 517.0 / 517.0 250 ML @ 250 mls/hr IV.SIG Q8H MARTHA Rx#:[id number] Oral 240 / 240 720 / 720 Output: Urine 700 / 700 Other: # Voids 1 1 Date of Last Bowel Movement 03/03/18 03/03/18 03/05/18 17:45 Wound - Finger Gram Stain - Final 03/05/18 17:45 Wound - Finger Wound Culture - Preliminary Staphylococcus aureus 03/05/18 17:45 Wound - Finger Fungal Smear - Final No fungal elements seen 03/05/18 17:45 Wound - Finger Fungal Culture - Pending 03/05/18 17:45 Wound - Finger Acid Fast Bacilli Smear - Final No acid fast bacilli seen 03/05/18 17:45 Wound - Finger Mycobacterial Culture - Pending 03/05/18 11:45 Abscess - Hand Gram Stain - Final 03/05/18 11:45 Abscess - Hand Wound Culture - Preliminary Staphylococcus aureus 03/05/18 11:20 Blood - Peripheral Aerobic Blood Culture - Preliminary No growth in 1 day 03/05/18 11:20 Blood - Peripheral Anaerobic Blood Culture - Preliminary No growth in 1 day 03/05/18 11:25 Blood - Peripheral Aerobic Blood Culture - Preliminary No growth in 1 day 03/05/18 11:25 Blood - Peripheral Anaerobic Blood Culture - Preliminary No growth in 1 day Lab - Hematology Results 03/05/18 03/06/18 11:20 04:55 CBC w Diff Auto diff final Auto diff final WBC 14.1 H 10.1 RBC 4.69 4.05 L Hgb 14.3 12.6 L Hct 42.5 37.5 L MCV 90.7 92.8 MCH 30.5 31.0 MCHC 33.6 33.4 RDW 12.4 13.1 Plt Count 330 291 MPV 9.3 9.5 Neut % (Auto) 83.1 H 75.5 H Lymph % (Auto) 7.5 L 12.0 [place] % (Auto) 7.3 9.0 H Eos % (Auto) 1.1 2.8 Baso % (Auto) 1.0 0.7 Neut # (Auto) 11.7 H 7.6 Lymph # (Auto) 1.1 1.2 [place] # (Auto) 1.0 H 0.9 Eos # (Auto) 0.2 0.3 Baso # (Auto) 0.1 0.1 WBC Differential . . Differential Comment . . Lab - Chemistry Results 03/05/18 03/05/18 03/05/18 11:20 11:20 11:49 Sodium 139 Potassium 3.8 Chloride 106 Carbon Dioxide 24.3 Anion Gap 9 BUN 22 H Creatinine 0.93 Estimated GFR Greater than 89 POC Glucose 114 H Random Glucose 103 Lactic Acid 1.5 Calcium 8.7 Total Bilirubin 0.5 AST 19 ALT 28 Alkaline Phosphatase 78 Total Protein 7.3 Albumin 3.6 03/06/18 04:55 Sodium 139 Potassium 3.6 Chloride 106 Carbon Dioxide 26.4 Anion Gap 7 BUN 12 Creatinine 0.70 Estimated GFR Greater than 89 POC Glucose Random Glucose 105 Lactic Acid Calcium 8.0 L Total Bilirubin AST ALT Alkaline Phosphatase Total Protein Albumin Imaging: ITS Impressions Forearm CT 03/05/18 00:00 CONCLUSION: 1. There is diffuse soft tissue swelling extending from the dorsal aspect of the hand up along the dorsal aspect of the forearm. There is no focal, drainable abscess identified. Hand CT 03/05/18 00:00 CONCLUSION: 1. There is diffuse soft tissue swelling. No focal, drainable abscess is seen. No retained foreign body is present. Chest X-Ray 03/05/18 11:37 CONCLUSION: Negative examination. Hand X-Ray 03/05/18 11:37 CONCLUSION: Soft tissue swelling. No retained foreign body or acute bony abnormality. Physical Exam: GENERAL: NAD SKIN: Warm and dry. NO rash MUSCULOSKELETAL: No cyanosis, or edema. L hand with dressing in place + sensitivity on fingers foreae wo edema erythema, soft compartments BACK: Nontender without obvious deformity. No CVA tenderness. Assessment and Plan - Plan L hand celllulits, phegmone, abscess sp I+D severe infection no e/o joint , tendeon involmement cont curent abx fu clx anticipete transition to PO upon dc (per lutures) ursula Valderrama
[2018-03-06] MEDS ORDERED: VANCOMYCIN TROUGH OTHER ONE (20:45)
[2018-03-07] MEDS: Vancomycin Inj 850 MG in Sodium Chlor 0.9% Inj 250 ML IV.SIG SCH ×2 (04:15→14:27)
[2018-03-07] MEDS: Piperacil/Tazo 4.5 GM Premix 4.5 GM/100 ML BAG IV.SIG SCH ×3 (06:01→17:20)
--- NOTE | 2018-03-07 09:41 | P.PNOP ---
Subjective Interval history: feels better, but still having left hand pain Physical Exam Vital signs: Vital Signs 03/06/18 11:24 03/06/18 12:00 03/06/18 20:00 Temperature 98.1 F 98.7 F 98.0 F Pulse Rate 72 78 85 Respiratory Rate 16 20 17 Blood Pressure 122/82 122/78 113/66 Pulse Oximetry 98 97 03/06/18 21:50 03/07/18 00:00 03/07/18 08:00 Temperature 97.5 F L 98.6 F Pulse Rate 80 76 Respiratory Rate 18 18 16 Blood Pressure 112/65 109/63 Pulse Oximetry 97 97 Intake & Output 03/06/18 03/07/18 03/07/18 18:59 06:59 18:59 Intake Total 2537.0 / 2537.0 1957.0 / 1957.0 Output Total 700 / 700 Balance 1837.0 / 1837.0 1957.0 / 1957.0 Weight 73.5 kg Intake: IV 1817.0 / 1817.0 1717.0 / 1717.0 LR 1000 mL Inj 1,000 ML @ 100 1000 / 1000 1000 / 1000 mls/hr IV.CONT .Q10H MARTHA Rx#: [id number] Zosyn 4.5 GM Premix 4.5 gm In 300 / 300 200 / 200 100 ml @ 200 mls/hr IV.SIG Q6H MARTHA Rx#:[id number] Vancomycin Inj 850 MG In NS Inj 517.0 / 517.0 517.0 / 517.0 250 ML @ 250 mls/hr IV.SIG Q8H MARTHA Rx#:[id number] Oral 720 / 720 240 / 240 Output: Urine 700 / 700 Other: # Voids 2 - Constitutional no acute distress Comments: sleeping when I arrived - Detailed Upper Extremity Exam Shoulder/Upper Arm: Left swelling (has improved, but still mild), Left wound ( left hand clean with minimal erythema and no drainage), Left erythema, Left decreased ROM Results - Labs CBC & Chem 7: 03/06/18 04:55 03/06/18 04:55 Laboratory Results - last 24 hr 03/06/18 20:50 Vancomycin Trough 10.6 H Microbiology 03/05/18 11:45 Abscess - Hand Gram Stain - Final 03/05/18 11:45 Abscess - Hand Wound Culture - Preliminary Staphylococcus aureus 11/29/18 17:45 Wound - Finger Gram Stain - Final 03/05/18 17:45 Wound - Finger Wound Culture - Preliminary Staphylococcus aureus 03/05/18 17:45 Wound - Finger Fungal Smear - Final No fungal elements seen 03/05/18 17:45 Wound - Finger Acid Fast Bacilli Smear - Final No acid fast bacilli seen 03/05/18 11:20 Blood - Peripheral Aerobic Blood Culture - Preliminary No growth in 1 day 03/05/18 11:20 Blood - Peripheral Anaerobic Blood Culture - Preliminary No growth in 1 day 03/05/18 11:25 Blood - Peripheral Aerobic Blood Culture - Preliminary No growth in 1 day 03/05/18 11:25 Blood - Peripheral Anaerobic Blood Culture - Preliminary No growth in 1 day MICs are still pending on wound cultures Assessment and Plan - Problem List (1) Laceration of hand with infection Code(s): S61.419A - Laceration without foreign body of unspecified hand, initial encounter; L08.9 - Local infection of the skin and subcutaneous tissue, unspecified Status: Acute Qualifiers: Encounter type: subsequent encounter Laterality: left Qualified Code(s): S61.412D - Laceration without foreign body of left hand, subsequent encounter; L08.9 - Local infection of the skin and subcutaneous tissue, unspecified - Assessment and Plan Wound cleaned with peroxide and packing removed no drainage expressible--redressed with Xeroform, sterile 4x4s, Ritesh, Juan wrap will continue elevating and IV antibiotics and discussed with Dr. Flores-- patient is okay to discharge when MICs are returned and can send home on appropriate PO antibiotics no dressing changes and patient knows to call Dr. Jenkins on 03/09 to be seen 03/10 Work note written for the patient for his hospital stay and at least one week and further work status per Dr. Jenkins
[2018-03-07] MEDS: Senna/Docusate Sodium 8.6/50 MG Tablet PO SCH ×2 (11:21→21:21)
--- NOTE | 2018-03-07 20:21 | P.PNADD ---
Addendum to Inpatient Note Additional information: cultures noted : MSSA switch abx to oxacillin Once cleared by hand sx switch to PO dicloxacillin 500 qid to complete 10- 14 days abx rec's were dw Dr Manuel Flores
[2018-03-08] MEDS: Senna/Docusate Sodium 8.6/50 MG Tablet PO SCH (08:44)
[2018-03-08 09:26] VITALS: BP 110/71; PULSE 89; TEMP 97.7; O2SAT 98
[2018-03-08 09:37] VITALS: RESP 18
== END 2018-03-08 11:01 | disposition home or self-care (01) ==
LOC: PHED 11:04 → PHEDA 13:01 → PH3 14:31
PROVIDERS: ADMIT Internal Medicine; ATTEND Internal Medicine
DX: M65.9 Synovitis and tenosynovitis, unspecified; S61.211A Laceration without foreign body of left index finger without damage to nail, initial encounter; L08.9 Local infection of the skin and subcutaneous tissue, unspecified; F17.210 Nicotine dependence, cigarettes, uncomplicated